=== PATIENT | male | born 1960 | race Caucasian/White ===

== ENCOUNTER 2016-11-30 12:19 | Emergency (ER) | payer BC ==
[2016-11-30 12:43] VITALS: BP 172/80; PULSE 74; RESP 20; TEMP 98.3
[2016-11-30] MEDS ORDERED: DIPH,PERTUS(ACELL)TETVAC-LF 0.5 ML VIAL IM ONE (13:02)
[2016-11-30] MEDS ORDERED: AMOXIC-POT CLAV 875-125MG 1 EACH TAB PO STA (13:03)
--- NOTE | 2016-11-30 13:10 | ED ---
Animal Bite HPI - General Chief Complaint: Animal Bite Stated Complaint: Dog Bite Time Seen by Provider: 11/30/16 12:48 Source: patient, RN notes reviewed Mode of arrival: ambulatory Limitations: no limitations - History of Present Illness Initial Comments: Patient is a 56-year-old male presents to the emergency room for evaluation of dog bite. Patient states about an hour and a half ago, he was bit by a [place]. Patient states he got bit over his right forearm. Patient states he is not up-to-date in his tetanus vaccine. Patient denies any blood thinners. Patient's exam and mild pain at the puncture sites. Patient denies any other injuries during incident. Patient denies tingling in his fingers. Patient states this dog is up-to-date in his immunizations. - Related Data Home Medications Medication Instructions Recorded Confirmed ALPRAZolam [Xanax] 1 mg PO HS 08/03/14 11/30/16 Oxymorphone HCl [Opana ER] 30 mg PO Q12HR 08/03/14 11/30/16 oxyCODONE-APAP 10-325MG [Percocet 1 each PO Q6HR PRN 08/03/14 11/30/16 10-325] Previous Rx's Medication Instructions Recorded Amoxicillin/Potassium Clav 1 each PO Q12HR #20 tab 11/30/16 [Augmentin 875-125 Tablet] Allergies Allergy/AdvReac Type Severity Reaction Status Date / Time No Known Allergies Allergy Verified 11/30/16 12:43 Review of Systems ROS Statement: Those systems with pertinent positive or pertinent negative responses have been documented in the HPI. ROS Other: All systems not noted in ROS Statement are negative. Past Medical History Additional Past Medical History / Comment(s): back pain, arthritis in back, Degenerative disc disease History of Any Multi-Drug Resistant Organisms: None Reported Past Surgical History: No Surgical Hx Reported Additional Past Surgical History / Comment(s): pelvis kidney, brain surgery Past Anesthesia/Blood Transfusion Reactions: No Reported Reaction Past Psychological History: Depression Smoking Status: Current every day smoker Past Alcohol Use History: None Reported Past Drug Use History: None Reported - Past Family History Father Additional Family Medical History / Comment(s): heart attack, triple bypass, lung cancer General Exam - General Exam Comments Initial Comments: Sitting in exam room, no acute distress. Limitations: no limitations General appearance: alert, in no apparent distress Head exam: Present: atraumatic, normocephalic, normal inspection Eye exam: Present: normal appearance ENT exam: Present: normal exam Neck exam: Present: normal inspection Respiratory exam: Absent: respiratory distress Right Forearm Wrist exam: Present: full ROM. Absent: normal inspection (two puncture wounds with mild surrounding swelling noted on the mid forearm) Hand Wrist exam: Present: normal inspection Neuro motor exam: Present: wrist extension intact, thumb opposition intact, thumb IP flexion intact, thumb adduction intact, fingers 2-5 abduction intact Vascular: Present: normal capillary refill (Capillary refill less than 2 seconds ), radial pulse (2+), ulnar pulse (2+) Back exam: Present: normal inspection Neurological exam: Present: alert, oriented X3, CN II-XII intact, normal gait Psychiatric exam: Present: normal affect, normal mood Skin exam: Present: warm, dry. Absent: rash Course Vital Signs 11/30/16 12:40 Temperature 98.3 F Pulse Rate 74 Respiratory 20 Rate Blood Pressure 172/80 O2 Sat by Pulse 97 Oximetry Medical Decision Making - Medical Decision Making Patient is a 56-year-old male presents to emergency room for evaluation of dog bite over her right forearm. X-ray shows no foreign bodies. Area was irrigated. Patient was placed on Augmentin. Patient update on his tetanus shot. Advised patient to return for signs of increasing swelling and drainage from the area. Patient states he understands everything that was discussed with him. Case discussed with Dr. West. - Radiology Data Radiology results: report reviewed, image reviewed Disposition Clinical Impression: Dog bite Disposition: HOME SELF-CARE Condition: Good Instructions: Animal Bite (ED) Additional Instructions: Clean area with antibacterial soap and water daily. Take antibiotics as directed. Please follow up with primary care provider for reevaluation in 24- 48 hours. If any new symptom arises or symptoms worsen, return to ER as soon as possible. Prescriptions: Amoxicillin/Potassium Clav [Augmentin 875-125 Tablet] 1 each PO Q12HR #20 tab Referrals: Luis Enrique Leija MD [Primary Care Provider] - 1-2 days Time of Disposition: 13:29
--- NOTE | 2016-11-30 13:28 | XR ---
EXAMINATION TYPE: XR forearm RT DATE OF EXAM: 11/30/2016 1:13 PM COMPARISON: NONE HISTORY: Pain Two views of the forearm demonstrate that the osseous structures appear to be intact and the joint sp aces appear to be preserved. There is no acute fracture or dislocation. IMPRESSION: 1. No acute fracture or dislocation
== END 2016-11-30 13:52 | disposition home or self-care (01) ==
LOC: EC 12:19
DX: S51.831A Puncture wound without foreign body of right forearm, initial encounter (principal); F32.9 Major depressive disorder, single episode, unspecified; M19.90 Unspecified osteoarthritis, unspecified site; F17.200 Nicotine dependence, unspecified, uncomplicated; Z23 Encounter for immunization; Z79.891 Long term (current) use of opiate analgesic; Z79.899 Other long term (current) drug therapy; W54.0XXA Bitten by dog, initial encounter
CPT/HCPCS: 90471; 90715; 99283

== ENCOUNTER → 2019-08-23 | Outpatient (CLI) | payer MEDICARE ==
--- NOTE | 2019-08-23 10:19 | MR ---
EXAMINATION TYPE: MR shoulder RT wo con DATE OF EXAM: 08/23/2019 COMPARISON: Outside x-ray 08/13/2019 HISTORY: Rt shoulder pain TECHNIQUE: Multiplanar, multisequence imaging of the right shoulder is performed without contrast. FINDINGS: Exam is limited due to severe artifact and motion. This results in significantly retained Limited exa m. There is arthropathy of the AC joint with edema involving the distal margin of the acromion. Edema wi thin the AC joint also noted. Impingement is noted secondary to the AC joint arthropathy. There is diffuse thickening and abnormal signal involving the distal 2.1 cm of the infraspinatus tend on compatible severe tendinopathy and partial intrasubstance tear. Undersurface tear at the insertion measuring 4 mm. No evidence of through thickness tear. Abnormal signal involving the critical zone of the supraspinatus tendon extending to the insertion. T here is a partial through thickness tear at the insertion measuring approximately 4 x 8 mm. No retrac tion. Subscapularis tendon is grossly intact. Glenohumeral joint space preserved with no sizable joint effusion. Glenohumeral ligaments intact. Assessment of bony labrum limited due to severe motion. Grossly no evidence of tear. Suprascapular Notch has a normal appearance. Bicipital tendon is well situated within the bicipital g roove with increased fluid surrounding the tendon compatible with mild tendinosis. IMPRESSION: 1. Markedly Limited exam due to extreme motion artifact. Diffuse tendinopathy of the distal 2.1 cm of the infraspinatus tendon with diffuse intrasubstance tear and degeneration extending to the insertio n but no through thickness tear or retraction. 2. Abnormal signal involving the critical zone and insertion of the supraspinatus tendon with partial through thickness tear at the insertion measuring 4 x 8 mm anterior fibers. No retraction. 3. Mild bicipital tendinosis. 4. AC joint arthropathy with edema involving the distal acromion which is nonspecific. There also is fluid signal within the AC joint correlate for strain. Mild impingement noted secondary to arthropath y of the AC joint.
== END | disposition home or self-care (01) ==
LOC: RADMRIMAIN 08:46
PROVIDERS: ATTEND Orthopaedic Surgery
DX: M75.111 Incomplete rotator cuff tear or rupture of right shoulder, not specified as traumatic (principal); M12.811 Other specific arthropathies, not elsewhere classified, right shoulder; M77.9 Enthesopathy, unspecified

== ENCOUNTER 2020-03-02 19:44 | Emergency (ER) | payer MEDICARE ==
[2020-03-02 19:57] VITALS: BP 108/68; PULSE 68; RESP 20; TEMP 98
[2020-03-02] MEDS ORDERED: FAMOTIDINE 20 MG/2 ML VIAL IV STA (20:05)
[2020-03-02] MEDS ORDERED: methylPREDNISolone SOD SUCCI 125 MG/2 ML VIAL IV STA (20:05)
--- NOTE | 2020-03-02 20:19 | ED ---
Skin/Abscess/FB HPI - General Chief complaint: Skin/Abscess/Foreign Body Stated complaint: Bee Sting on L Eye- Allergic Rxn Time Seen by Provider: 03/02/20 20:00 Source: patient Mode of arrival: ambulatory Limitations: no limitations - History of Present Illness Initial comments: 59-year-old male presenting for bee sting to left eyelid. Patient states he saw a bug flying towards him and his tongue his left eyelid. Patient states he has had swelling since. Doesn't look or tongue swelling feeling that his throat is scratchy or closing denies any hives or wheezing. Patient is about abdominal pain nausea vomiting. Patient no additional complaints. He appears well nontoxic, with obvious soft tissue swelling of the left eye surrounding tissues. This happened just prior to arrival and patient took benadryl. - Related Data Home Medications Medication Instructions Recorded Confirmed ALPRAZolam [Xanax] 1 mg PO HS 08/03/14 11/30/16 Oxymorphone HCl [Opana ER] 30 mg PO Q12HR 08/03/14 11/30/16 oxyCODONE-APAP 10-325MG [Percocet 1 each PO Q6HR PRN 08/03/14 11/30/16 10-325] Previous Rx's Medication Instructions Recorded Amoxicillin/Potassium Clav 1 each PO Q12HR #20 tab 11/30/16 [Augmentin 875-125 Tablet] predniSONE 50 mg PO DAILY 3 Days #3 tab 03/02/20 Allergies Allergy/AdvReac Type Severity Reaction Status Date / Time No Known Allergies Allergy Verified 03/02/20 19:56 Review of Systems ROS Statement: Those systems with pertinent positive or pertinent negative responses have been documented in the HPI. ROS Other: All systems not noted in ROS Statement are negative. Past Medical History Additional Past Medical History / Comment(s): back pain, arthritis in back, Degenerative disc disease History of Any Multi-Drug Resistant Organisms: None Reported Past Surgical History: No Surgical Hx Reported Additional Past Surgical History / Comment(s): pelvis kidney, brain surgery Past Anesthesia/Blood Transfusion Reactions: No Reported Reaction Past Psychological History: Depression Smoking Status: Current every day smoker Past Alcohol Use History: None Reported Past Drug Use History: None Reported - Past Family History Father Additional Family Medical History / Comment(s): heart attack, triple bypass, lung cancer General Exam - General Exam Comments Initial Comments: General: The patient is awake and alert, in no distress Eye: +3 mm pupils are equal, round and reactive to light, extra-ocular movements are intact. No nystagmus. There is normal conjunctiva bilaterally. No signs of icterus. Ears, nose, mouth and throat: There are moist mucous membranes and no oral lesions. Soft tissue swelling of the periorbital tissues this is not erythematous, vision intact when lids retracted. No conjunctival injection. Neck: The neck is supple, there is no tenderness or JVD. Cardiovascular: There is a regular rate and rhythm. No murmur, rub or gallop is appreciated. Respiratory: Lungs are clear to auscultation, respirations are non-labored, breath sounds are equal. No wheezes, stridor, rales, or rhonchi. Gastrointestinal: Soft, non-distended, non-tender abdomen without masses or organomegaly noted. There is no rebound or guarding present. Musculoskeletal: Normal ROM, no tenderness. Strength 5/5. Sensation intact. Pulses equal bilaterally 2+. Neurological: A&O x 3. CN II-XII intact grossly, There are no obvious motor or sensory deficits. Coordination appears grossly intact. Speech is normal. Skin: Skin is warm and dry and no rashes or lesions are noted. Psychiatric: Cooperative, appropriate mood & affect, normal judgment. Limitations: no limitations Course Vital Signs 03/02/20 19:54 Temperature 98.0 F Pulse Rate 68 Respiratory 20 Rate Blood Pressure 108/68 O2 Sat by Pulse 99 Oximetry Medical Decision Making - Medical Decision Making Nontoxic 59-year-old male presenting for bee sting left eyelid there is obvious local reaction. Patient has no symptoms concerning for systemic reaction. Patient took Benadryl prior to arrival he was given Solumedrol and Pepcid. Patient be discharged with a steroid. Discussed symptomatic treatment and patient was discharged appearing well. Return parameters also discussed and case was discussed with attending Dr. West who is agreeable to care plan and discharge. Disposition Clinical Impression: Bee sting reaction, Eye swelling, left Disposition: HOME SELF-CARE Condition: Good Instructions (If sedation given, give patient instructions): Insect Bite or Sting (ED) Additional Instructions: Please use medication as discussed. Please follow-up with family doctor in the next 2 days. Please return to emergency room if the symptoms increase or worsen or for any other concerns. Prescriptions: predniSONE 50 mg PO DAILY 3 Days #3 tab Is patient prescribed a controlled substance at d/c from ED?: No Referrals: Luis Enrique Leija MD [Primary Care Provider] - 1-2 days Time of Disposition: 20:19
[2020-03-02] MEDS ORDERED: methylPREDNISolone SOD SUCCI 125 MG/2 ML VIAL IM ONE (20:21)
[2020-03-02] MEDS ORDERED: FAMOTIDINE 20 MG TAB PO STA (20:21)
== END 2020-03-02 21:01 | disposition home or self-care (01) ==
LOC: EC 19:44
DX: T63.441A Toxic effect of venom of bees, accidental (unintentional), initial encounter (principal); F32.9 Major depressive disorder, single episode, unspecified; M54.9 Dorsalgia, unspecified; F17.200 Nicotine dependence, unspecified, uncomplicated; Z79.891 Long term (current) use of opiate analgesic; Z79.899 Other long term (current) drug therapy
CPT/HCPCS: 99283; 96372; J2930

== ENCOUNTER → 2020-04-01 | Outpatient (CLI) | payer MEDICARE ==
--- NOTE | 2020-04-01 15:34 | XR ---
EXAMINATION TYPE: XR skull limited DATE OF EXAM: 04/01/2020 COMPARISON: NONE HISTORY: Pre-MRI TECHNIQUE: 3 views submitted FINDINGS: Lucency along the left parietal bone is nonspecific. Chronic be correlated with head CT. Pi veronica gland calcification noted. No suspicious metallic densities overlying the orbits. IMPRESSION: No evidence of metallic foreign body overlying the orbits.
== END | disposition home or self-care (01) ==
LOC: RADXRMAIN 15:05
PROVIDERS: ATTEND Anesthesiology
DX: Z09 Encounter for follow-up examination after completed treatment for conditions other than malignant neoplasm (principal); Z18.10 Retained metal fragments, unspecified
CPT/HCPCS: 70250

== ENCOUNTER 2021-06-08 15:03 | Emergency (ER) | payer MEDICARE ==
[2021-06-08 15:11] VITALS: BP 172/96; PULSE 92; RESP 18; TEMP 98.8
[2021-06-08 15:11] LABS: Glucose,Whole Blood 187 mg/dL (75-99)
[2021-06-08] MEDS ORDERED: MORPHINE SULFATE 4 MG/ML SYRINGE IVP STA ×2 (15:15→16:31)
[2021-06-08] MEDS ORDERED: DIPH,PERTUS(ACELL)TETVAC-LF 0.5 ML VIAL IM ONE (15:17)
[2021-06-08] MEDS ORDERED: SODIUM CHLORIDE 0.9% 1,000 ML IV STA (15:17)
[2021-06-08] MEDS ORDERED: diphenhydrAMINE 50 MG/ML 1 ML VIAL IVP STA (15:22)
[2021-06-08] MEDS ORDERED: FAMOTIDINE 20 MG/2 ML VIAL IV STA (15:22)
[2021-06-08] MEDS ORDERED: ONDANSETRON 4 MG/2 ML VIAL IVP STA (15:22)
[2021-06-08] MEDS ORDERED: methylPREDNISolone SOD SUCCI 125 MG/2 ML VIAL IV STA (15:22)
[2021-06-08 15:27] LABS: Basophils # (A) 0.1 k/uL (0-0.2); Basophils % (A) 0 %; Eosinophils # (A) 0.2 k/uL (0-0.7); Eosinophils % (A) 1 %; HCT 44.4 % (39.0-53.0); HGB 15.6 gm/dL (13.0-17.5); Lymphocytes # (A) 5.1 k/uL (1.0-4.8); Lymphocytes % (A) 29 %; MCH 31.6 pg (25.0-35.0); MCHC 35.2 g/dL (31.0-37.0); MCV 89.6 fL (80.0-100.0); Mean Platelet Volume 8.2; Monocytes # (A) 0.9 k/uL (0-1.0); Monocytes % (A) 5 %; Neutrophils # (A) 10.8 k/uL (1.3-7.7); Neutrophils % (A) 63 %; Platelet Count 256 k/uL (150-450); RBC 4.95 m/uL (4.30-5.90); RDW 12.5 % (11.5-15.5); WBC 17.3 k/uL (3.8-10.6)
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
[2021-06-08 15:56] LABS: INR 0.9 (<1.2); Partial Thromboplastin Time 21.9 sec (22.0-30.0)
[2021-06-08 16:05] LABS: Appearance,Urine Clear (Clear); Bacteria,Urine Rare /hpf; Bilirubin,Urine Negative (Negative); Blood,Urine Moderate (Negative); Color,Urine Yellow; Glucose,Urine (UA) 3+ (Negative); Hyaline Casts,Urine 1 /lpf (0-2); Ketones,Urine Negative (Negative); Leukocyte Esterase,Urine Negative (Negative); Mucus,Urine Rare /hpf; Nitrite,Urine Negative (Negative); PH, Urine 5.5 (5.0-8.0); Protein,Urine 1+ (Negative); RBC,Urine 69 /hpf (0-5); Specific Gravity,Urine 1.021 (1.001-1.035); Urobilinogen,Urine <2.0 mg/dL (<2.0); WBC,Urine 1 /hpf (0-5)
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
[2021-06-08 16:07] LABS: ALT 53 U/L (4-49); AST 74 U/L (17-59); African American GFR (CKD) >90 (>60 ml/min/1.73 sqM); Alcohol <10 mg/dL; Alkaline Phosphatase 161 U/L (38-126); Anion Gap 7 mmol/L; Blood Urea Nitrogen 20 mg/dL (9-20); Calcium 8.9 mg/dL (8.4-10.2); Carbon Dioxide 23 mmol/L (22-30); Chloride 103 mmol/L (98-107); Glucose 184 mg/dL (74-99); Non-African American GFR(CKD) >90 (>60 ml/min/1.73 sqM); Sodium 133 mmol/L (137-145); Total Bilirubin 0.9 mg/dL (0.2-1.3); Total Protein 7.6 g/dL (6.3-8.2)
[2021-06-08 16:09] LABS: Potassium 4.8 mmol/L (3.5-5.1)
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
[2021-06-08 16:13] LABS: Amphetamine Screen,Urine Not Detected (NotDetected); Barbiturate Screen,Urine Not Detected (NotDetected); Benzodiazepines Screen,Urine Not Detected (NotDetected); Cocaine Screen,Urine Not Detected (NotDetected); Methadone Screen, Urine Not Detected (NotDetected); Opiate Screen,Urine Detected (NotDetected); Oxycodone Screen, Urine Detected (NotDetected); Phencyclidine Screen,Urine Not Detected (NotDetected); Tricyclic Antidepressant,Urine Not Detected (NotDetected); Urn Cannabinoid Scrn Not Detected (NotDetected)
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
[2021-06-08] MEDS ORDERED: LIDOCAINE 1% INJ 10MG/ML (20 ML MDV) SQ ONE (16:21)
[2021-06-08] MEDS ORDERED: LIDOCAINE 5% PATCH TOPICAL STA (16:31)
[2021-06-08] MEDS ORDERED: KETOROLAC 30 MG/ML 1 ML VIAL IVP STA (16:42)
[2021-06-08] MEDS ORDERED: methocarbamoL 750 MG TAB PO STA (16:43)
[2021-06-08] MEDS ORDERED: PROCHLORPERAZINE INJ 10 MG/2 ML VIAL IVP STA (16:43)
[2021-06-08] MEDS ORDERED: MORPHINE SULFATE 2 MG/ML SYRINGE IVP STA (17:48)
== END 2021-06-08 18:43 | disposition home or self-care (01) ==
LOC: EC 15:03
DX: S01.81XA Laceration without foreign body of other part of head, initial encounter (principal); G89.29 Other chronic pain; M54.50 Low back pain, unspecified; R07.81 Pleurodynia; U07.1 COVID-19; D72.829 Elevated white blood cell count, unspecified; R31.9 Hematuria, unspecified; F17.200 Nicotine dependence, unspecified, uncomplicated; F32.9 Major depressive disorder, single episode, unspecified; Z79.52 Long term (current) use of systemic steroids; Z79.899 Other long term (current) drug therapy; Z23 Encounter for immunization; V49.50XA Passenger injured in collision with unspecified motor vehicles in traffic accident, initial encounter; Y92.410 Unspecified street and highway as the place of occurrence of the external cause
CPT/HCPCS: 12014; 99285; 96374; 96375 ×6; 96376 ×2; 96361; 90471; 36415; 93005; 86900; 86901; 80053; 84484; 85025; 85610; 85730; 86850; 81001; 80306; 72170; 71045; 72129; 72125; 72132; 70486; 70450; 71260; 74177; 90715; G0480; J2270 ×2; J1200; J0780; J2930; J2405; J2001; J1885; Q9967; 80320

== ENCOUNTER 2023-01-10 23:17 | Inpatient (IN) | payer BC, MEDICARE, OTHER ==
[2023-01-10 23:56] LABS: ALT 27 U/L (4-49); AST 24 U/L (17-59); African American GFR (CKD) >90 (>60 ml/min/1.73 sqM); Albumin 4.1 g/dL (3.5-5.0); Alkaline Phosphatase 105 U/L (38-126); Anion Gap 11 mmol/L; Blood Urea Nitrogen 15 mg/dL (9-20); Carbon Dioxide 19 mmol/L (22-30); Chloride 106 mmol/L (98-107); Glucose 296 mg/dL (74-99); Non-African American GFR(CKD) >90 (>60 ml/min/1.73 sqM); Sodium 136 mmol/L (137-145); Total Bilirubin 0.3 mg/dL (0.2-1.3); Total Protein 7.1 g/dL (6.3-8.2)
[2023-01-10 23:59] LABS: Basophils # (A) 0.1 k/uL (0-0.2); Basophils % (A) 1 %; Eosinophils # (A) 0.3 k/uL (0-0.7); Eosinophils % (A) 3 %; HGB 15.7 gm/dL (13.0-17.5); Lymphocytes # (A) 3.4 k/uL (1.0-4.8); Lymphocytes % (A) 33 %; MCH 30.4 pg (25.0-35.0); MCHC 33.4 g/dL (31.0-37.0); MCV 91.2 fL (80.0-100.0); Mean Platelet Volume 8.2; Monocytes # (A) 0.5 k/uL (0-1.0); Monocytes % (A) 5 %; Neutrophils # (A) 5.8 k/uL (1.3-7.7); Neutrophils % (A) 57 %; Platelet Count 228 k/uL (150-450); RBC 5.16 m/uL (4.30-5.90); RDW 12.6 % (11.5-15.5); WBC 10.2 k/uL (3.8-10.6)
[2023-01-11 00:04] LABS: Prothrombin Time 10.5 sec (9.0-12.0)
--- NOTE | 2023-01-11 00:12 | XR ---
EXAM: XR Chest, 2 Views CLINICAL HISTORY: chest pain TECHNIQUE: Frontal and lateral views of the chest. COMPARISON: 06/08/21 FINDINGS: Lungs: No significant abnormality. No consolidation. Pleural space: No significant abnormality. No pneumothorax. Heart: No significant abnormality. No cardiomegaly. Mediastinum: No significant abnormality. Bones/joints: No acute abnormality. IMPRESSION: No acute cardiopulmonary process.
[2023-01-11] MEDS ORDERED: ASPIRIN 81 MG PO STA (01:00)
[2023-01-11] MEDS ORDERED: NITROGLYCERIN SL TABS 0.4 MG TAB SUBLINGUAL STA (01:03)
[2023-01-11] MEDS ORDERED: HEPARIN SODIUM 1,000 UN/ML (10ML VL) IV PRN (01:04)
[2023-01-11] MEDS ORDERED: HEPARIN SODIUM 1,000 UN/ML (10ML VL) IV ONE (01:04)
[2023-01-11] MEDS ORDERED: NITROGLYCERIN SL TABS 0.4 MG TAB SUBLINGUAL PRN ×3 (01:17→12:39)
[2023-01-11] MEDS ORDERED: NICOTINE 21MG/24HR PATCH TRANSDERM STA (01:20)
--- NOTE | 2023-01-11 01:24 | ED ---
Chest Pain HPI - General Chief Complaint: Chest Pain Stated Complaint: Chest Pain Time Seen by Provider: 01/11/23 00:59 Source: patient Mode of arrival: ambulatory Limitations: no limitations - History of Present Illness Initial Comments: This patient is a 62-year-old man who presents to have evaluation of pain in the left upper chest that had come on tonight about 11:30 while he was using computer. Patient states she has had about 45 episodes of this going back a number of weeks maybe a month. He states that they usually last about an hour, much like tonight. The pain has resolved now. He states that there is some accompanying diaphoresis and a little bit of dyspnea. Tonight there was nausea and dry heaves. The patient states that he does smoke maybe around 2 packs of cigarettes per day. He has not had a heart cath he did have a stress test but that was a long time ago. MD Complaint: chest pain Onset/Timin -: hour(s) Onset: during rest Pain Location: left chest Pain Radiation: LUE Severity: severe Quality: aching Consistency: now resolved Improves With: nothing Worsens With: nothing Anginal Symptoms: nausea, vomiting, diaphoresis, dyspnea Treatments Prior to Arrival: none - Related Data Home Medications Medication Instructions Recorded Confirmed oxyCODONE-APAP 10-325MG [Percocet 1 tab PO BID PRN 08/03/14 01/11/23 10-325 mg] Oxymorphone HCl [Oxymorphone HCl 10 mg PO Q12H 01/11/23 01/11/23 ER] Zolpidem [Ambien] 10 mg PO HS 01/11/23 01/11/23 Previous Rx's Medication Instructions Recorded Aspirin EC [Ecotrin Low Dose] 81 mg PO DAILY #90 tab 01/12/23 Atorvastatin [Lipitor] 80 mg PO DAILY #90 tab 01/12/23 Metoprolol Tartrate [Lopressor] 25 mg PO BID #180 tab 01/12/23 Nicotine 21Mg/24Hr Patch [Habitrol] 1 patch TRANSDERM DAILY #30 patch 01/12/23 Prasugrel [Effient] 10 mg PO DAILY #90 tab 01/12/23 Allergies Allergy/AdvReac Type Severity Reaction Status Date / Time Iodinated Contrast Media Allergy Unknown Verified 01/11/23 11:22 Review of Systems ROS Statement: Those systems with pertinent positive or pertinent negative responses have been documented in the HPI. ROS Other: All systems not noted in ROS Statement are negative. Constitutional: Denies: fever, chills Respiratory: Reports: as per HPI, dyspnea. Denies: cough Cardiovascular: Reports: chest pain. Denies: palpitations, edema, syncope Gastrointestinal: Reports: nausea, vomiting. Denies: abdominal pain, constipation, hematemesis Genitourinary: Denies: dysuria, hematuria Musculoskeletal: Denies: back pain Skin: Denies: rash Neurological: Denies: headache, weakness, numbness EKG Findings - EKG Results: EKG: interpreted by SHAHBAZD, sinus rhythm (Rate 75 bpm), normal QRS (There is left anterior fascicular block.) - Blocks, Ava, Hypertrophy, ST Abn: Repolarization changes or abnormalities: ST or T wave suggestive of ischemia (Inferior) Past Medical History Additional Past Medical History / Comment(s): back pain, arthritis in back, Degenerative disc disease History of Any Multi-Drug Resistant Organisms: None Reported Past Surgical History: No Surgical Hx Reported Additional Past Surgical History / Comment(s): pelvis kidney, brain surgery Past Anesthesia/Blood Transfusion Reactions: No Reported Reaction Past Psychological History: Depression Smoking Status: Current every day smoker Past Alcohol Use History: None Reported Past Drug Use History: None Reported - Past Family History Father Additional Family Medical History / Comment(s): heart attack, triple bypass, lung cancer General Exam Limitations: no limitations General appearance: alert, in no apparent distress Head exam: Present: atraumatic, normocephalic Eye exam: Present: normal appearance. Absent: scleral icterus, conjunctival injection Neck exam: Present: normal inspection Respiratory exam: Present: normal lung sounds bilaterally. Absent: respiratory distress, wheezes, rales, rhonchi, stridor Cardiovascular Exam: Present: regular rate, normal rhythm, normal heart sounds. Absent: systolic murmur, diastolic murmur, rubs, gallop GI/Abdominal exam: Present: soft. Absent: distended, tenderness, guarding, rebound, rigid, mass Extremities exam: Present: normal inspection, normal capillary refill. Absent: pedal edema, calf tenderness Back exam: Present: normal inspection. Absent: CVA tenderness (R), CVA tenderness (L) Neurological exam: Present: alert Skin exam: Present: warm, dry, intact, normal color. Absent: rash Course Vital Signs 01/10/23 01/11/23 01/11/23 23:33 01:42 02:00 Temperature 98 F Pulse Rate 74 68 64 Pulse Rate [ Right] Respiratory 18 18 16 Rate Blood Pressure 196/99 160/88 165/105 Blood Pressure [Left Arm] O2 Sat by Pulse 98 98 Oximetry 01/11/23 01/11/23 01/11/23 03:00 03:35 04:00 Temperature Pulse Rate 60 58 L 59 L Pulse Rate [ Right] Respiratory 17 18 17 Rate Blood Pressure 166/107 148/78 143/80 Blood Pressure [Left Arm] O2 Sat by Pulse Oximetry 01/11/23 01/11/23 01/11/23 05:00 06:00 07:00 Temperature Pulse Rate 59 L 54 L 55 L Pulse Rate [ Right] Respiratory 18 17 14 Rate Blood Pressure 127/98 141/83 136/89 Blood Pressure [Left Arm] O2 Sat by Pulse 95 Oximetry 01/11/23 01/11/23 01/11/23 07:46 08:00 09:00 Temperature Pulse Rate 57 L 60 Pulse Rate [ 66 Right] Respiratory 15 15 12 Rate Blood Pressure 137/76 154/77 Blood Pressure 130/83 [Left Arm] O2 Sat by Pulse 95 95 98 Oximetry 01/11/23 10:00 Temperature Pulse Rate 56 L Pulse Rate [ Right] Respiratory 12 Rate Blood Pressure 150/87 Blood Pressure [Left Arm] O2 Sat by Pulse 95 Oximetry Chest Pain MDM - MDM The patient had chest x-ray which I interpreted as being negative for acute infiltrate, pneumothorax, congestive heart failure Was pt. sent in by a medical professional or institution (, PA, CENTER MEDICAL AND [facility] DIRECTOR, urgent care, hospital, or halfway...) When possible be specific @ -[No] Did you speak to anyone other than the patient for history (EMS, parent, family, police, friend...)? What history was obtained from this source @ -[No] Did you review nursing and triage notes (agree or disagree)? Why? @ -[I reviewed and agree with nursing and triage notes] Were old charts reviewed (outside hosp., previous admission, EMS record, old EKG, old radiological studies, urgent care reports/EKG's, halfway records)? Report findings @ -[No old charts were reviewed] Differential Diagnosis (chest pain, altered mental status, abdominal pain women, abdominal pain men, vaginal bleeding, weakness, fever, dyspnea, syncope, headache, dizziness, GI bleed, back pain, seizure, CVA, palpatations, mental health, musculoskeletal)? @ -[Differential Chest Pain: Stable Angina, Unstable Angina, STEMI, NSTEMI Aortic Dissection, Pneumothorax, Musculoskeletal, Esophageal Spasm GERD, Cholecystitis, Pancreatitis, Zoster, this is not meant to be an all-inclusive list. EKG interpreted by me (3pts min.). @ -[As above] X-rays interpreted by me (1pt min.). @ -[As above CT interpreted by me (1pt min.). @ -[None done] U/S interpreted by me (1pt. min.). @ -[None done] What testing was considered but not performed or refused? (CT, X-rays, U/S, lab s)? Why? @ -[None] What meds were considered but not given or refused? Why? @ -[None] Did you discuss the management of the patient with other professionals (professionals i.e. , PA, CENTER MEDICAL AND [facility] DIRECTOR, lab, RT, psych nurse, neonatal social worker, fancy packer, teacher, agricultural technical officer, correctional counselor/case manager)? Give summary @ -[I discussed the case with the digital cartographer and with the admitting physician Was smoking cessation discussed for >3mins.? @ -[No] Was critical care preformed (if so, how long)? @ -[Yes, 30 minutes Were there social determinants of health that impacted care today? How? (Homelessness, low income, unemployed, alcoholism, drug addiction, transportation, low edu. Level, literacy, decrease access to med. care, intermediate, rehab)? @ -[No] Was there de-escalation of care discussed even if they declined (Discuss DNR or withdrawal of care, Hospice)? DNR status @ -[No] What co-morbidities impacted this encounter? (DM, HTN, Smoking, COPD, CAD, Cancer, CVA, ARF, Chemo, Hep., AIDS, mental health diagnosis, sleep apnea, morbid obesity)? @ -[None] Was patient admitted / discharged? Hospital course, mention meds given and route, prescriptions, significant lab abnormalities, going to OR and other pertinent info. @ -[I patient be admitted to have further treatment as well as cardiology consultation Undiagnosed new problem with uncertain prognosis? @ -[No] Drug Therapy requiring intensive monitoring for toxicity (Heparin, Nitro, Insulin, Cardizem)? @ -IV heparin started Were any procedures done? @ -[No] Diagnosis/symptom? @ -[Acute coronary syndrome Acute, or Chronic, or Acute on Chronic? @ -[default] Uncomplicated (without systemic symptoms) or Complicated (systemic symptoms)? @ -[Uncomplicated Side effects of treatment? @ -[No] Exacerbation, Progression, or Severe Exacerbation? @ -[No] Poses a threat to life or bodily function? How? (Chest pain, [place], [place], pneumonia, PE, COPD, DKA, ARF, appy, cholecystitis, CVA, Diverticulitis, Homicidal, Suicidal, threat to staff... and all critical care pts) @ -[Yes, untreated cardiac chest pain may result in [place]/ Critical Care Time Critical Care Time: Yes (30 minutes) Disposition Clinical Impression: Acute coronary syndrome Disposition: ADMITTED IP TO THIS HOSP Condition: Fair Is patient prescribed a controlled substance at d/c from ED?: No
[2023-01-11] MEDS ORDERED: MORPHINE SULFATE 4 MG/ML SYRINGE IV STA (01:25)
[2023-01-11] MEDS: HEPARIN SOD,PORK IN 0.45% NACL 25,000 UNIT in 0.45% NACL 1 250ML.BAG IV SCH (01:35)
[2023-01-11] MEDS: METOPROLOL TARTRATE 25 MG TAB PO SCH ×3 (01:42→20:50)
[2023-01-11] MEDS: SODIUM CHLORIDE 0.9% 1,000 ML IV SCH ×3 (01:46→23:39)
[2023-01-11] MEDS ORDERED: ALPRAZolam 1 MG TAB PO STA (02:17)
[2023-01-11] MEDS ORDERED: ATORVASTATIN 80 MG TAB PO STA ×2 (03:15→09:35)
[2023-01-11] MEDS: ATORVASTATIN 80 MG TAB PO SCH (08:42)
[2023-01-11] MEDS: oxyCODONE-APAP 10-325MG 1 EACH TAB PO PRN ×3 (08:43→23:30)
[2023-01-11] MEDS: predniSONE 50 MG TAB PO SCH (08:43)
[2023-01-11] MEDS: OXYMORPHONE HCL 30 MG PO SCH ×2 (08:43→20:55)
[2023-01-11] MEDS ORDERED: ALPRAZolam 0.5 MG TAB PO PRN (09:35)
[2023-01-11] MEDS ORDERED: ALPRAZolam 0.25 MG TAB PO PRN (09:35)
[2023-01-11] MEDS ORDERED: ASPIRIN 325 MG TAB PO STA (09:35)
[2023-01-11] MEDS ORDERED: ONDANSETRON 4 MG/2 ML VIAL IVP PRN (09:39)
[2023-01-11] MEDS ORDERED: ONDANSETRON 4 MG/2 ML VIAL IVP STA (09:39)
--- NOTE | 2023-01-11 09:40 | P.HPIM ---
History of Present Illness This is a pleasant 62 years old male with past medical history of back pain, arthritis in back, Degenerative disc disease, Depression, nicotine dependence Presents because of chest pain on and off for the last 2-3 weeks, central, n onradiating, nonspecific. With no associated dyspnea or coughing. This is associated with some nausea and vomiting Patient denies abdominal pain or urinary complaints. He had some headaches but no dizziness weakness or numbness. Patient says he smokes a lot, 2.5-to 3 packs per day, no alcohol or illicit drugs. Patient was consulted with and he said he will try rigid a fistula nicotine patch Patient is bradycardic around 50s, still vitals are stable. Patient has unremarkable CBC, INR, BMP, liver enzymes. Was elevated to 96. Troponin elevated at 0.09 0.14 and 0.44. EKG showing normal sinus rhythm with no significant ST-T changes. Chest x-ray: no Acute process. Patient currently on heparin drip and chest pain improved Review of Systems Review of systems CONSTITUTIONAL: No fever, no malaise, no fatigue. HEENT: No recent visual problems or hearing problems. Denied any sore throat. CARDIOVASCULAR: No orthopnea, PND, no palpitations, no syncope. PULMONARY: No shortness of breath, no cough, no hemoptysis. GASTROINTESTINAL: No diarrhea, no nausea, no vomiting, no abdominal pain. Normoactive bowel sounds. NEUROLOGICAL: No headaches, no weakness, no numbness. HEMATOLOGICAL: Denies any bleeding or petechiae. GENITOURINARY: Denies any burning micturition, frequency, or urgency. MUSCULOSKELETAL/RHEUMATOLOGICAL: Denies any joint pain, swelling, or any muscle pain. ENDOCRINE: Denies any polyuria or polydipsia. Past Medical History Additional Past Medical History / Comment(s): back pain, arthritis in back, Degenerative disc disease History of Any Multi-Drug Resistant Organisms: None Reported Past Surgical History: No Surgical Hx Reported Additional Past Surgical History / Comment(s): pelvis kidney, brain surgery Past Anesthesia/Blood Transfusion Reactions: No Reported Reaction Past Psychological History: Depression Smoking Status: Current every day smoker Past Alcohol Use History: None Reported Past Drug Use History: None Reported - Past Family History Father Additional Family Medical History / Comment(s): heart attack, triple bypass, lung cancer Medications and Allergies Home Medications Medication Instructions Recorded Confirmed Type ALPRAZolam [Xanax] 1 mg PO HS 08/03/14 11/30/16 History Oxymorphone HCl [Opana ER] 30 mg PO Q12HR 08/03/14 11/30/16 History oxyCODONE-APAP 10-325MG [Percocet 1 each PO Q6HR PRN 08/03/14 11/30/16 History 10-325] Amoxicillin/Potassium Clav 1 each PO Q12HR #20 tab 11/30/16 Rx [Augmentin 875-125 Tablet] predniSONE 50 mg PO DAILY 3 Days #3 tab 03/02/20 Rx Lidocaine 5% Patch [Lidoderm 5% 1 patch TOPICAL DAILY 7 Days #7 06/08/21 Rx Patch] patch Allergies Allergy/AdvReac Type Severity Reaction Status Date / Time Iodinated Contrast Media Allergy Unknown Unverified 01/10/23 23:33 Physical Exam Vitals: Vital Signs Temp Pulse Resp BP Pulse Ox 01/11/23 08:00 57 L 15 137/76 95 01/11/23 07:00 55 L 14 136/89 95 01/11/23 06:00 54 L 17 141/83 01/11/23 05:00 59 L 18 127/98 01/11/23 04:00 59 L 17 143/80 01/11/23 03:35 58 L 18 148/78 01/11/23 03:00 60 17 166/107 01/11/23 02:00 64 16 165/105 01/11/23 01:42 68 18 160/88 98 01/10/23 23:33 98 F 74 18 196/99 98 Intake and Output 01/10/23 01/11/23 01/11/23 22:59 06:59 14:59 Intake Total 59.757 Balance 59.757 Intake: Intake, IV Titration 59.757 Amount Heparin Sod,Pork in 0.45% 59.757 NaCl 25,000 unit In 0.45 % NaCl 1 250ml.bag @ 12 UNITS/KG/HR 10.832 mls/hr IV .Q23H5M [facility] Rx#: [id number] Other: Weight 90.265 kg GENERAL: The patient is alert and oriented x3, not in any acute distress. Well developed, well nourished. HEENT: Pupils are round and equally reacting to light. EOMI. No scleral icterus. No conjunctival pallor. Normocephalic, atraumatic. No pharyngeal erythema. No thyromegaly. CARDIOVASCULAR: S1 and S2 present. No murmurs, rubs, or gallops. PULMONARY: Chest is clear to auscultation, no wheezing , no crackles. ABDOMEN: Soft, nontender, nondistended, normoactive bowel sounds. No palpable organomegaly. MUSCULOSKELETAL: No joint swelling or deformity. EXTREMITIES: No cyanosis, clubbing, or pedal edema. NEUROLOGICAL: Gross neurological examination did not reveal any focal deficits. SKIN: No rashes. no petechiae. Results CBC & Chem 7: 01/10/23 23:38 01/10/23 23:38 Labs: Abnormal Lab Results - Last 24 Hours (Table) 01/10/23 01/10/23 01/11/23 Range/Units 23:38 23:38 01:48 APTT (22.0-30.0) sec Sodium 136 L (137-145) mmol/L Carbon Dioxide 19 L (22-30) mmol/L Glucose 296 H (74-99) mg/dL Troponin I 0.096 H* 0.143 H* (0.000-0.034) ng/mL 01/11/23 01/11/23 Range/Units 05:27 05:27 APTT 39.4 H (22.0-30.0) sec Sodium (137-145) mmol/L Carbon Dioxide (22-30) mmol/L Glucose (74-99) mg/dL Troponin I 0.446 H* (0.000-0.034) ng/mL Assessment and Plan Assessment: Chest pain, suspicious for non-STEMI Nicotine dependence History of osteoarthritis within back pain and degenerative disc disease Depression, not active issue Plan: Continue with aspirin Check echocardiogram Patient is counseled to quit smoking. Continue with nicotine patch. I discussed the case with cartilage team possible cardiac cath today Labs and medication were reviewed.. Continue same treatment. Continue with symptomatic treatment. Resume home medication. Monitor labs and vitals. DVT and GI prophylaxis. Further recommendations as per clinical course of the patient DVT prophylaxis: heparin GI Prophylaxis: Pepcid Prognosis is guarded
[2023-01-11] MEDS: FAMOTIDINE 20 MG/2 ML VIAL IV SCH ×2 (09:52→20:50)
[2023-01-11] MEDS ORDERED: HEPARIN SODIUM 1,000 UN/ML (10ML VL) ONE (10:48)
[2023-01-11] MEDS ORDERED: VERAPAMIL 2.5 MG/ML 2 ML AMP ONE (10:48)
[2023-01-11] MEDS ORDERED: fentaNYL (PF) 50 MCG/ML 2 ML AMP ONE (10:49)
[2023-01-11] MEDS ORDERED: IV FLUID CONTINUATION 1,000 ML IV ONE (10:55)
[2023-01-11] MEDS: fentaNYL (PF) 50 MCG/ML 2 ML AMP IV ONE ×2 (11:06→12:27)
[2023-01-11] MEDS ORDERED: diphenhydrAMINE 50 MG/ML 1 ML VIAL IVP ONE (11:06)
[2023-01-11] MEDS ORDERED: methylPREDNISolone SOD SUCCI 125 MG/2 ML VIAL IV ONE (11:06)
[2023-01-11] MEDS ORDERED: methylPREDNISolone SOD SUCCI 125 MG/2 ML VIAL ONE (11:06)
[2023-01-11] MEDS ORDERED: diphenhydrAMINE 50 MG/ML 1 ML VIAL ONE (11:06)
[2023-01-11] MEDS: MIDAZOLAM 2 MG/2 ML VIAL IV ONE ×2 (11:06→12:21)
[2023-01-11] MEDS ORDERED: LIDOCAINE 1% INJ 10MG/ML (5 ML VIAL-PF) SQ ONE (11:09)
[2023-01-11] MEDS ORDERED: VERAPAMIL SYRINGE (5 MG/10 ML) INTRAARTER ONE (11:11)
[2023-01-11] MEDS: HEPARIN SODIUM 1,000 UN/ML (10ML VL) IV ONE ×3 (11:13→12:41)
[2023-01-11] MEDS ORDERED: niCARdipine 25 MG/10 ML VIAL ONE (11:57)
[2023-01-11] MEDS ORDERED: CLOPIDOGREL 75 MG TAB ONE (11:58)
[2023-01-11] MEDS ORDERED: PRASUGREL 10 MG TAB ONE ×2 (12:00)
[2023-01-11] MEDS ORDERED: PRASUGREL 10 MG TAB PO ONE (12:02)
[2023-01-11] MEDS: NITROGLYCERIN 1000MCG/10ML SYRINGE INTRACORON ONE ×2 (12:05→12:21)
[2023-01-11] MEDS ORDERED: IOPAMIDOL-370 100ML BTL INJ ONE ×2 (12:16→12:41)
--- NOTE | 2023-01-11 12:21 | CC ---
CARDIAC CATHETERIZATION REPORT INDICATION: Acute [id number] elevation MO. PROCEDURE NOTE: After obtaining informed consent, left heart catheterization and coronary angiogram were performed via the right radial artery using standard Leon catheters. The patient tolerated the procedure well without any obvious immediate complications. The patient received moderate conscious sedation. Total sedation time was 20 minutes. Right radial artery access was obtained using Seldinger technique. A 6-Georgian sheath was placed. Catheters and wires were floated into the ascending aorta under fluoroscopic guidance. The patient tolerated the procedure well without any obvious immediate complications, received verapamil and heparin per protocol. The patient has history of allergy to IV dye and he received Benadryl and Solu-Medrol prior to the case. Procedure was completed uneventfully. FINDINGS: HEMODYNAMICS: 1. Left ventricular end-diastolic pressure is 20 mm. There is no significant gradient across the aortic valve. 2. Left ventriculogram: Left ventriculogram is not performed. ANGIOGRAPHIC DATA: Right coronary artery: Right coronary artery is a large dominant vessel and is free of stenosis. Left main coronary artery is a short vessel and is free of stenosis. It divides into left anterior descending coronary artery and circumflex coronary artery. LAD and its branches are free of significant disease. Circumflex coronary artery shows a long area of 90% to 95% stenosis involving a large caliber second OM branch. The [place] circ also has 60% to 70% stenosis. CONCLUSIONS: There is 90% stenosis involving the OM branch with an area of stenosis involving circ also at the bifurcation. PLAN: I am going to have Dr. Amos, the on-call aviation project manager, review the angiographic data and advise on angioplasty of the OM branch. MMJOONL / SAMIN: [id number] /
[2023-01-11] MEDS ORDERED: MAG HYDROX/AL HYDROX/SIMETH 30 ML CUP PO PRN (12:39)
[2023-01-11] MEDS ORDERED: ATROPINE SULFATE 0.1 MG/ML 10ML SYRINGE IV PRN (12:39)
[2023-01-11] MEDS ORDERED: RX INFO: IV CONTRAST WAS GIVEN 1 EACH MISC MISCELLANE PRN (12:39)
[2023-01-11] MEDS ORDERED: ZOLPIDEM 5 MG TAB PO PRN (12:39)
[2023-01-11] MEDS ORDERED: SODIUM CHLORIDE 0.9% 1,000 ML in EMPTY BAG 1 BAG IV SCH (12:45)
--- NOTE | 2023-01-11 12:47 | P.PCN ---
Date of Procedure: 01/11/23 Operative Findings: PERCUTANEOUS CORONARY INTERVENTION Performing physician Phill Amos M.D. Procedure Performed: 1. Successful stenting of a large OM-1 of the LCX using 3.0 x 18 mm and 3.25 x 12 mm Xience drug-eluting stents along with balloon angioplasty of the mid LCX with an excellent angiographic results and reduction of stenosis from 99% to 0% 2. Adjunctive use of intravascular imaging with IVUS Indication: Acute non-ST elevation myocardial infarction Approach: Right radial artery Complications: None Level of Sedation: Moderate with a sedation length of 50 minutes Procedure Discussion: After diagnostic heart catheterization was performed and after reviewing the angiogram the decision was made toward percutaneous coronary intervention of the left circumflex is large OM. Anticoagulation was initiated using heparin with continuous ACT monitoring. Subsequently the left main was engaged using JL 3.5 guiding catheter. The OM1 was wired using a whisper wire and subsequently another wire was placed in the AV groove left circumflex. Predilatation of the AV groove left circumflex was performed using 2.5 mm balloon and subsequently predilatation of the OM1 was performed using the same 2.5 mm balloon. After th at I did intravascular ultrasound of the OM1 where I was able to get a diameter about 3 mm of OM1. I decided to go ahead and deployed a 30 by 18 mm stent where the stent was positioned under fluoroscopy guidance and deployed under fluoroscopy guidance under 14 rigoberto. I did subsequently intravascular ultrasound which showed that the midportion of the stent was opposed but was not well expanded. I decided to post-dilate. I was able to advance 3.5 mm noncompliant balloon were the balloon was advanced under fluoroscopy guidance to the stented segment and I did PTCA ballooning of the stent in the OM1. The following angiogram showed an edge dissection on the distal edge of the stent. I decided to cover that with the stent so I deployed 3.25 x 12 mm stent with the second stent was positioned under fluoroscopy guidance and deployed under its nominal pressure. Postdilatation after that was performed after I performed again intravascular ultrasound. I did postdilated patient finally using 3.75 mm balloon. That was a noncompliant balloon. Final angiogram showed excellent angiographic results and the procedure was completed was no complication. There was CELSO-3 flow in both OM1 and the AV groove left circumflex coronary artery Postprocedure Management: 1. Dual antiplatelet therapy using aspirin and Effient for at least 12 months 2. Aggressive cholesterol control 3. Risk factors modification
--- NOTE | 2023-01-11 13:12 | P.CRDCN ---
History of Present Illness Consult date: 01/11/23 Reason for Consult (text): ACS History of present illness: History of present illness: This is a 62-year-old male with no previous cardiac history. He states he had a stress test done many years ago. He has a past medical history of chronic back pain chronic shoulder pain. Patient presented to hospital due to left-sided chest pain. He also had shortness of breath, sweats, he also had 1 episode of vomiting. He has had these episodes 4-5 times over the past 2 weeks but last night it became too much and more severe. Patient is a smoker of currently 2.5 packs per day and he started when he was a teenager. At the time of this evaluation, patient's chest pain has resolved. He does not know what improved his pain. Patient is seen today in the emergency center waiting for about on the cardiac stepdown unit. EKG sinus rhythm Chest x-ray: No acute process Troponin 0.096, 0.143, 0.446. CBC normal. CMP unremarkable other than a blood sugar of 296. Liver function tests were normal. Home cardiac medications: None Review Of Systems: At the time of my evaluation: Constitutional: No fever, no chills. No weakness, fatigue or lethargy. EENT: No headache. No dizziness. Lungs: No shortness of breath, cough, no sputum production. No wheezing. Cardiovascular: No chest pain, no lower extremity edema. No palpitations. No paroxysmal nocturnal dyspnea. No orthopnea. No lightheadedness or dizziness. No syncopal episodes. Abdominal: No abdominal pain. No nausea, vomiting. No diarrhea. No constipation. No bloody or tarry stools. Genitourinary: No dysuria.. No urinary retention. Musculoskeletal: No myalgias. No muscle weakness, no frequent falls. No back pain. No neck pain. Integumentary: No wounds. No rash. No unusual bruising. Neurologic: No aphasia. No facial droop. No change in mentation. No head injury. No headache. Physical examination: Gen: This is a 62-year-old male. He is resting and appears to be comfortable and in no acute distress. VS: reviewed HEENT: Head is atraumatic, normocephalic. Pupils equal, round. Sclerae is anicteric. NECK: Supple. No JVD. . LUNGS: Clear to auscultation. No wheezes or rhonchi. No intercostal retractions. HEART: Regular rate and rhythm. No murmur. ABDOMEN: Soft No tenderness. EXTREMITIES: No pedal edema. No calf tenderness. NEUROLOGICAL: Patient is awake, alert and oriented x3. Assessment: Non-ST elevated myocardial infarction Tobacco use and dependence Hyperglycemia Tobacco use and dependence Plan: Continue patient on heparin drip Start patient on aspirin, statin, and continue patient on Lopressor 25 mg twice daily Scheduled patient for cardiac catheterization today with Dr. aLmb Obtain 2-D echocardiogram and Doppler study to assess cardiac structure and function Smoking cessation Further recommendations to follow based upon clinical course Thank you kindly for this consultation. Nurse practitioner note has been reviewed, I agree with documented findings and plan of care. Patient was seen and examined. Past Medical History Additional Past Medical History / Comment(s): back pain, arthritis in back, Degenerative disc disease History of Any Multi-Drug Resistant Organisms: None Reported Past Surgical History: No Surgical Hx Reported Additional Past Surgical History / Comment(s): pelvis kidney, brain surgery Past Anesthesia/Blood Transfusion Reactions: No Reported Reaction Past Psychological History: Depression Smoking Status: Current every day smoker Past Alcohol Use History: None Reported Past Drug Use History: None Reported - Past Family History Father Additional Family Medical History / Comment(s): heart attack, triple bypass, lung cancer Medications and Allergies Home Medications Medication Instructions Recorded Confirmed Type oxyCODONE-APAP 10-325MG [Percocet 1 tab PO BID PRN 08/03/14 01/11/23 History 10-325] Oxymorphone HCl [Oxymorphone HCl 10 mg PO Q12H 01/11/23 01/11/23 History ER] Zolpidem [Ambien] 10 mg PO HS 01/11/23 01/11/23 History Allergies Allergy/AdvReac Type Severity Reaction Status Date / Time Iodinated Contrast Media Allergy Unknown Verified 01/11/23 11:22 Physical Exam Vitals: Vital Signs Temp Pulse Resp BP Pulse Ox 01/11/23 08:00 57 L 15 137/76 95 01/11/23 07:00 55 L 14 136/89 95 01/11/23 06:00 54 L 17 141/83 01/11/23 05:00 59 L 18 127/98 01/11/23 04:00 59 L 17 143/80 01/11/23 03:35 58 L 18 148/78 01/11/23 03:00 60 17 166/107 01/11/23 02:00 64 16 165/105 01/11/23 01:42 68 18 160/88 98 01/10/23 23:33 98 F 74 18 196/99 98 Intake and Output 01/10/23 01/11/23 01/11/23 22:59 06:59 14:59 Intake Total 59.757 Balance 59.757 Intake: Intake, IV Titration 59.757 Amount Heparin Sod,Pork in 0.45% 59.757 NaCl 25,000 unit In 0.45 % NaCl 1 250ml.bag @ 12 UNITS/KG/HR 10.832 mls/hr IV .Q23H5M [facility] Rx#: [id number] Other: Weight 90.265 kg Results 01/10/23 23:38 01/10/23 23:38 Cardiac Enzymes 01/10/23 01/10/23 01/11/23 Range/Units 23:38 23:38 01:48 AST 24 (17-59) U/L Troponin I 0.096 H* 0.143 H* (0.000-0.034) ng/mL 01/11/23 Range/Units 05:27 AST (17-59) U/L Troponin I 0.446 H* (0.000-0.034) ng/mL Coagulation 01/10/23 01/11/23 Range/Units 23:38 05:27 PT 10.5 (9.0-12.0) sec APTT 24.0 39.4 H (22.0-30.0) sec CBC 01/10/23 Range/Units 23:38 WBC 10.2 (3.8-10.6) k/uL RBC 5.16 (4.30-5.90) m/uL Hgb 15.7 (13.0-17.5) gm/dL Hct 47.0 (39.0-53.0) % Plt Count 228 (150-450) k/uL Comprehensive Metabolic Panel 01/10/23 Range/Units 23:38 Sodium 136 L (137-145) mmol/L Potassium 4.0 (3.5-5.1) mmol/L Chloride 106 (98-107) mmol/L Carbon Dioxide 19 L (22-30) mmol/L BUN 15 (9-20) mg/dL Creatinine 0.88 (0.66-1.25) mg/dL Glucose 296 H (74-99) mg/dL Calcium 9.0 (8.4-10.2) mg/dL AST 24 (17-59) U/L ALT 27 (4-49) U/L Alkaline Phosphatase 105 (38-126) U/L Total Protein 7.1 (6.3-8.2) g/dL Albumin 4.1 (3.5-5.0) g/dL Current Medications Generic Name Dose Route Start Last Admin Trade Name Freq PRN Reason Stop Dose Admin Alprazolam 1 mg 01/11/23 21:00 Alprazolam 1 Mg Tab PO HS [facility] Aspirin 325 mg 01/12/23 09:00 Aspirin 325 Mg Tab PO DAILY [facility] Atorvastatin Calcium 80 mg 01/11/23 09:00 01/11/23 08:42 Atorvastatin 80 Mg Tab PO 80 mg DAILY [place] Administration Heparin Sodium (Porcine) 0 unit 01/11/23 01:04 01/11/23 07:02 Heparin Sodium 1,000 Un/Ml (10ml Vl) IV 2,256.6 unit PER PROTOCOL PRN Administration Low PTT Protocol Heparin Sodium/Sodium Chloride 250 mls @ 10.832 mls/hr 01/11/23 01:15 01/11/23 07:06 25,000 unit/ Sodium Chloride IV 14 units/kg/hr .Q23H5M [facility] 12.637 mls/hr Titration Protocol 12 UNITS/KG/HR Sodium Chloride 1,000 mls @ 100 mls/hr 01/11/23 01:30 01/11/23 01:46 Saline 0.9% IV 100 mls/hr .Q10H [facility] Administration Metoprolol Tartrate 25 mg 01/11/23 01:30 01/11/23 08:42 Metoprolol Tartrate 25 Mg Tab PO 25 mg BID [place] Administration Nitroglycerin 0.4 mg 01/11/23 01:17 Nitroglycerin Sl Tabs 0.4 Mg Tab SUBLINGUAL Q5M PRN Chest Pain Non-Formulary Medication 30 mg 01/11/23 09:00 01/11/23 08:43 Oxymorphone Hcl [Opana Er] PO Not Given Q12HR [facility] Oxycodone/Acetaminophen 1 each 01/11/23 01:24 01/11/23 08:43 Oxycodone-Apap 10-325mg 1 Each Tab PO 1 each Q6HR PRN Administration Pain Prednisone 50 mg 01/11/23 09:00 01/11/23 08:43 Prednisone 50 Mg Tab PO 50 mg DAILY [place] Administration Intake and Output 01/10/23 01/11/23 01/11/23 22:59 06:59 14:59 Intake Total 59.757 Balance 59.757 Intake: Intake, IV Titration 59.757 Amount Heparin Sod,Pork in 0.45% 59.757 NaCl 25,000 unit In 0.45 % NaCl 1 250ml.bag @ 12 UNITS/KG/HR 10.832 mls/hr IV .Q23H5M [facility] Rx#: [id number] Other: Weight 90.265 kg 01/10/23 23:38 01/10/23 23:38
[2023-01-11 15:28] VITALS: RESP 16
[2023-01-11] MEDS ORDERED: ALPRAZolam 1 MG TAB PO SCH (21:00)
[2023-01-12] MEDS: HEPARIN SOD,PORK IN 0.45% NACL 25,000 UNIT in 0.45% NACL 1 250ML.BAG IV SCH (00:47)
[2023-01-12] MEDS: NICOTINE 21MG/24HR PATCH TRANSDERM SCH ×2 (01:06→09:27)
[2023-01-12] MEDS ORDERED: HEPARIN SODIUM,PORCINE 2,500 UNIT in SODIUM CHLORIDE 0.9% 250 ML IRRIGATION PRN (07:00)
[2023-01-12] MEDS ORDERED: HEPARIN SODIUM,PORCINE 10,000 UNIT in SODIUM CHLORIDE 0.9% 1,000 ML IRRIGATION PRN (07:00)
[2023-01-12] MEDS ORDERED: PRASUGREL 10 MG TAB PO SCH (09:00)
[2023-01-12] MEDS ORDERED: ASPIRIN 325 MG TAB PO SCH (09:00)
[2023-01-12] MEDS: SODIUM CHLORIDE 0.9% 1,000 ML IV SCH (09:20)
[2023-01-12] MEDS: OXYMORPHONE HCL 30 MG PO SCH (09:20)
[2023-01-12] MEDS: FAMOTIDINE 20 MG/2 ML VIAL IV SCH (09:27)
[2023-01-12] MEDS: oxyCODONE-APAP 10-325MG 1 EACH TAB PO PRN (09:27)
[2023-01-12] MEDS: predniSONE 50 MG TAB PO SCH (09:28)
[2023-01-12] MEDS: ATORVASTATIN 80 MG TAB PO SCH (09:28)
[2023-01-12] MEDS: METOPROLOL TARTRATE 25 MG TAB PO SCH (09:28)
[2023-01-12 10:30] LABS: African American GFR (CKD) >90 (>60 ml/min/1.73 sqM); Non-African American GFR(CKD) >90 (>60 ml/min/1.73 sqM)
--- NOTE | 2023-01-12 12:01 | CA ---
Transthoracic Echo Report Name: Angel Mejia Age: 62 Gender: M : 1960 Exam Date: 01/11/2023 15:05 Exam Location: [place] [facility] Ht (in): 68 Wt (lb): 199 Ordering Physician: Rosy Durham Attending/Referring Phys: [id number], Marva [employer] Bertha Lema [facility] Procedure CPT: Indications: LVF Cardiac Hx: Technical Quality: Technically difficult study Contrast 1: Total Dose (mL): Contrast 2: Total Dose (mL): MEASUREMENTS (Male / Female) Normal Values 2D ECHO LV Diastolic Diameter PLAX 4.5 cm 4.2 - 5.9 / 3.9 - 5.3 cm LV Systolic Diameter PLAX 3.4 cm IVS Diastolic Thickness 0.8 cm 0.6 - 1.0 / 0.6 - 0.9 cm LVPW Diastolic Thickness 1.0 cm 0.6 - 1.0 / 0.6 - 0.9 cm LV Relative Wall Thickness 0.4 M-MODE Aortic Root Diameter MM 3.0 cm LA Systolic Diameter MM 3.4 cm LA Ao Ratio MM 1.1 AV Cusp Separation MM 1.7 cm DOPPLER AV Peak Velocity 147.2 cm/s AV Peak Gradient 8.7 mmHg AV Mean Velocity 102.9 cm/s AV Mean Gradient 4.7 mmHg AV Velocity Time Integral 28.1 cm LVOT Peak Velocity 113.5 cm/s LVOT Peak Gradient 5.2 mmHg LVOT Velocity Time Integral 20.9 cm Mitral E Point Velocity 70.3 cm/s Mitral A Point Velocity 84.0 cm/s Mitral E to A Ratio 0.8 MV Deceleration Time 238.5 ms LV E' Lateral Velocity 8.6 cm/s Mitral E to LV E' Lateral Ratio 8.2 LV E' Septal Velocity 9.5 cm/s Mitral E to LV E' Septal Ratio 7.4 Right Atrial Pressure 3.0 mmHg FINDINGS Left Ventricle Normal Left ventricular size, wall thickness, systolic function with no obvious regional wall motion abnormalities. Left ventricular ejection fraction is estimated at 50-55%. Right Ventricle Mild right ventricular dilatation. Right Atrium Normal right atrial size. Left Atrium Normal left atrial size. Mitral Valve Structurally normal mitral valve. Trace mitral regurgitation. Aortic Valve Aortic valve not well visualized. No aortic valve stenosis or regurgitation. Tricuspid Valve Structurally normal tricuspid valve. No tricuspid regurgitation. Pulmonic Valve Pulmonic valve not well visualized. Pericardium No pericardial effusion. Prominent epicardial fat. Aorta Normal size aortic root. CONCLUSIONS Normal LV size and systolic function Previewed by: Dr. Grzegorz Powell MD (Electronically Signed) Final Date: 12 January 2023 12:00
[2023-01-12 12:26] VITALS: BP 120/74; PULSE 60; TEMP 97.5
--- NOTE | 2023-01-12 13:43 | P.PN ---
Subjective Progress Note Date: 01/12/23 History of present illness: This is a 62-year-old male with no previous cardiac history. He sta umu he had a stress test done many years ago. He has a past medical history of chronic back pain chronic shoulder pain. Patient presented to hospital due to left-sided chest pain. He also had shortness of breath, sweats, he also had 1 episode of vomiting. He has had these episodes 4-5 times over the past 2 weeks but last night it became too much and more severe. Patient is a smoker of currently 2.5 packs per day and he started when he was a teenager. At the time of this evaluation, patient's chest pain has resolved. He does not know what improved his pain. Patient is seen today in the emergency center waiting for about on the cardiac stepdown unit. EKG sinus rhythm Chest x-ray: No acute process Troponin 0.096, 0.143, 0.446. CBC normal. CMP unremarkable other than a blood sugar of 296. Liver function tests were normal. Home cardiac medications: None 01/12 Yesterday, patient underwent cardiac catheterization with Dr. Darien Lamb which revealed 90% stenosis involving the OM branch with an area of stenosis involving the circumflex also at the bifurcation. Subsequently, patient had a stent placed in the OM branch by Dr. Amos. This morning, patient denies having any chest pain, no shortness of breath, no lightheadedness or dizziness. He has been ambulating without difficulty. Blood pressure 120/74, heart rate in the 60s. Echocardiogram reveals normal LV size and systolic function. Physical examination: Gen: This is a 62-year-old male. He is resting and appears to be comfortable and in no acute distress. VS: reviewed HEENT: Head is atraumatic, normocephalic. Pupils equal, round. Sclerae is anicteric. NECK: Supple. No JVD. . LUNGS: Clear to auscultation. No wheezes or rhonchi. No intercostal retractions. HEART: Regular rate and rhythm. No murmur. ABDOMEN: Soft No tenderness. EXTREMITIES: No pedal edema. No calf tenderness. NEUROLOGICAL: Patient is awake, alert and oriented x3. Assessment: Non-ST elevated myocardial infarction status post stent of the OM Tobacco use and dependence Hyperglycemia Tobacco use and dependence Plan: Continue patient on current cardiac medications, prescriptions have been sent to his pharmacy Patient will follow up in one week with Dr. Lamb Patient is cleared for discharge from cardiology. Nurse practitioner note has been reviewed, I agree with documented findings and plan of care. Patient was seen and examined. Objective - Vital Signs Vital signs: Vital Signs Temp 98.3 F 01/12/23 04:00 Pulse 65 01/12/23 04:00 Resp 16 01/12/23 04:00 BP 135/75 01/12/23 04:00 Pulse Ox 97 01/12/23 04:00 FiO2 Intake & Output 01/11/23 01/12/23 01/12/23 18:59 06:59 18:59 Intake Total 609.350 400 540 Balance 609.350 400 540 Weight 90.265 kg Intake: IV 400 Intake, IV Titration 91.350 400 Amount Heparin Sod,Pork in 0.45% 91.350 NaCl 25,000 unit In 0.45 % NaCl 1 250ml.bag @ 12 UNITS/KG/HR 10.832 mls/hr IV .Q23H5M [facility] Rx#: [id number] Sodium Chloride 0.9% 1, 400 000 ml @ 100 mls/hr IV . Q10H [facility] Rx#:[id number] Oral 118 540 Other: # Voids 1 1 - Labs CBC & Chem 7: 01/10/23 23:38 01/12/23 09:44 Labs: Abnormal Lab Results - Last 24 Hours (Table) 01/11/23 Range/Units 14:37 APTT 51.1 H (22.0-30.0) sec
[2023-01-12 13:46] VITALS: BMI 30.2
[2023-01-12 16:07] LABS: Chol/HDL Ratio 6.45 Ratio; LDL Cholesterol,Calculated 97.7 mg/dL (0.0-131.0)
--- NOTE | 2023-01-17 06:35 | P.DS ---
Providers Date of admission: 01/11/23 01:17 Expected date of discharge: 01/12/23 Attending physician: Leonardo Freedman Consults: 01/11/23 01:17 Consult Physician Urgent Consulting Provider: Phill Amos Consult Reason/Comments: Acute coronary syndrome Do you want consulting provider notified?: Yes 01/11/23 12:39 Consult Physician Routine Consulting Provider: [facility] Consult Reason/Comments: Post Interventional patient Do you want consulting provider notified?: Already Contacted Primary care physician: Luis Enrique Leija Hospital Course: Final diagnosis Chest pain, suspicious for non-STEMI, status post stenting Nicotine dependence History of osteoarthritis within back pain and degenerative disc disease Depression, not active issue obesity with a BMI of 30.3 GI prophylaxis DVT prophylaxis Full code Discharge disposition Patient is being discharged in a stable condition with guarded prognosis to home. Patient will follow-up with Dr. Leija in the outpatient setting upon discharge. Patient is to continue with medications as prescribed low along with close outpatient follow-up with cardiology as scheduled. Total time taken is greater than 35 minutes. Hospital course This is a 62-year-old male who was recently admitted with chest pain, elevated troponins underwent cardiac catheterization with stenting. Patient will continue on aspirin and effient and close outpatient follow-up with cardiology. Strongly encouraged smoking cessation is patient reports he smokes approximately 3 packs per day. Patient was given nicotine patches on discharge and instructed to follow-up with primary care provider this week. Diet and risk factor modifications discussed. Please refer to cardiology no for further HPI. Patient reports to feeling well and would like to go home. Currently no reports of chest pain, shortness of breath, or palpitations. Patient is afebrile. No reports of nausea or vomiting and patient is tolerating diet. Patient will be d ischarged home today. Guarded prognosis. Physical exam: Gen: This is a 62-year-old male who is awake, alert and oriented 3, well- developed, well-nourished, obese HEENT: Head is atraumatic, normocephalic. Pupils equal, round. Sclerae is anicteric. NECK: Supple. No JVD. No lymphadenopathy. No thyromegaly. LUNGS: Clear to auscultation. No wheezes or rhonchi. No intercostal retractions. HEART: S1, S2 are muffled ABDOMEN: Soft. Obese. Bowel sounds are present. No masses. No tenderness. EXTREMITIES: No pedal edema. No calf tenderness. NEUROLOGICAL: Patient is awake, alert and oriented x3. Cranial nerves 2 through 12 are grossly intact. Please refer to medication reconciliation sheet for a list of medications. The impression and plan of care has been dictated by Rhonda Mei, Nurse Practitioner as directed. Dr. Tano MD I have performed a history and examination and MDM of this patient, discussed the same with the dictator, and agree with the dictator's assessment and plan as written ,documented as a scribe. Based on total visit time, I have performed more than 50% of the visit. Patient Condition at Discharge: Fair Plan - Discharge Summary Discharge Rx Participant: No New Discharge Prescriptions: New Nicotine 21Mg/24Hr Patch [Habitrol] 1 patch TRANSDERM DAILY #30 patch Aspirin EC [Ecotrin Low Dose] 81 mg PO DAILY #90 tab Prasugrel [Effient] 10 mg PO DAILY #90 tab Atorvastatin [Lipitor] 80 mg PO DAILY #90 tab Metoprolol Tartrate [Lopressor] 25 mg PO BID #180 tab Continue oxyCODONE-APAP 10-325MG [Percocet 10-325 mg] 1 tab PO BID PRN PRN Reason: Pain Zolpidem [Ambien] 10 mg PO HS Oxymorphone HCl [Oxymorphone HCl ER] 10 mg PO Q12H Discharge Medication List oxyCODONE-APAP 10-325MG [Percocet 10-325 mg] 1 tab PO BID PRN 08/03/14 [History] Oxymorphone HCl [Oxymorphone HCl ER] 10 mg PO Q12H 01/11/23 [History] Zolpidem [Ambien] 10 mg PO HS 01/11/23 [History] Aspirin EC [Ecotrin Low Dose] 81 mg PO DAILY #90 tab 01/12/23 [Rx] Atorvastatin [Lipitor] 80 mg PO DAILY #90 tab 01/12/23 [Rx] Metoprolol Tartrate [Lopressor] 25 mg PO BID #180 tab 01/12/23 [Rx] Nicotine 21Mg/24Hr Patch [Habitrol] 1 patch TRANSDERM DAILY #30 patch 01/12/23 [Rx] Prasugrel [Effient] 10 mg PO DAILY #90 tab 01/12/23 [Rx] Follow up Appointment(s)/Referral(s): Luis Enrique Leija MD [Primary Care Provider] - 1-2 days Jeremi Lamb MD [STAFF PHYSICIAN] - 1 Week Patient Instructions/Handouts: Heart Attack (DC), Coronary Artery Disease (DC) Activity/Diet/Wound Care/Special Instructions: Activity Limited until follow-up Follow-up with primary care provider on discharge [place] follow-up with cardiology in 1-2 weeks Continue with medications as prescribed Continue heart healthy diet Avoid all tobacco use and exposure Discharge Disposition: HOME SELF-CARE
== END 2023-01-12 14:55 | disposition home or self-care (01) | DRG 247 ==
LOC: EC 23:17 → 3SCARD 01-11 01:17
PROVIDERS: ADMIT Hospitalist; ATTEND Hospitalist
PROC: B2111ZZ Fluoroscopy of Multiple Coronary Arteries using Low Osmolar Contrast (ICD-10-PCS; 2023-01-11)
PROC: 027035Z Dilation of Coronary Artery, One Artery with Two Drug-eluting Intraluminal Devices, Percutaneous Approach (ICD-10-PCS; principal; 2023-01-11 11:03)
PROC: B240ZZ3 Ultrasonography of Single Coronary Artery, Intravascular (ICD-10-PCS; 2023-01-11 11:03)
PROC: 4A023N7 Measurement of Cardiac Sampling and Pressure, Left Heart, Percutaneous Approach (ICD-10-PCS; 2023-01-11 11:03)
DX: I21.4 Non-ST elevation (NSTEMI) myocardial infarction (principal); E66.9 Obesity, unspecified; F32.A Depression, unspecified; I25.119 Atherosclerotic heart disease of native coronary artery with unspecified angina pectoris; F17.210 Nicotine dependence, cigarettes, uncomplicated; M47.9 Spondylosis, unspecified; G89.29 Other chronic pain; M25.519 Pain in unspecified shoulder; R73.9 Hyperglycemia, unspecified; Z68.30 Body mass index [BMI] 30.0-30.9, adult; Z71.6 Tobacco abuse counseling; Z79.891 Long term (current) use of opiate analgesic; Z91.041 Radiographic dye allergy status; Z79.899 Other long term (current) drug therapy; Z82.49 Family history of ischemic heart disease and other diseases of the circulatory system; Z79.02 Long term (current) use of antithrombotics/antiplatelets; Z79.82 Long term (current) use of aspirin
CPT/HCPCS: 36415; 71046; 80053; 80061; 82565; 84484; 85025; 85610; 85730; 92978; 93005; 93306; 93458; 96365; 96366; 96375; 99291

== ENCOUNTER 2023-10-07 23:11 | Emergency (ER) | payer MEDICARE ==
[2023-10-08 00:44] LABS: Basophils # (A) 0.1 k/uL (0-0.2); Basophils % (A) 1 %; Eosinophils # (A) 0.1 k/uL (0-0.7); Eosinophils % (A) 1 %; HGB 14.7 gm/dL (13.0-17.5); Lymphocytes # (A) 3.6 k/uL (1.0-4.8); Lymphocytes % (A) 35 %; MCH 30.4 pg (25.0-35.0); MCHC 32.6 g/dL (31.0-37.0); MCV 93.1 fL (80.0-100.0); Mean Platelet Volume 8.8; Monocytes # (A) 0.6 k/uL (0-1.0); Monocytes % (A) 6 %; Neutrophils # (A) 5.6 k/uL (1.3-7.7); Neutrophils % (A) 54 %; Platelet Count 217 k/uL (150-450); RBC 4.84 m/uL (4.30-5.90); RDW 13.1 % (11.5-15.5); WBC 10.2 k/uL (3.8-10.6)
[2023-10-08 00:52] LABS: ALT 33 U/L (4-49); African American GFR (CKD) 75 (>60 ml/min/1.73 sqM); Albumin 4.3 g/dL (3.5-5.0); Anion Gap 9 mmol/L; Blood Urea Nitrogen 28 mg/dL (9-20); Calcium 9.1 mg/dL (8.4-10.2); Carbon Dioxide 21 mmol/L (22-30); Chloride 106 mmol/L (98-107); Glucose 251 mg/dL (74-99); Non-African American GFR(CKD) 65 (>60 ml/min/1.73 sqM); Sodium 136 mmol/L (137-145); Total Bilirubin 0.7 mg/dL (0.2-1.3); Total Protein 7.3 g/dL (6.3-8.2)
[2023-10-08 00:55] LABS: AST 29 U/L (17-59); Alkaline Phosphatase 96 U/L (38-126); Magnesium 1.6 mg/dL (1.6-2.3); Potassium 4.6 mmol/L (3.5-5.1)
[2023-10-08 00:57] LABS: INR 1.1 (<1.2); Partial Thromboplastin Time 24.6 sec (22.0-30.0); Prothrombin Time 11.5 sec (10.0-12.5)
[2023-10-08 00:59] LABS: NT-Pro-B-Type Natriuretic Pept 74 pg/mL
[2023-10-08 01:28] VITALS: RESP 18; TEMP 97.7
--- NOTE | 2023-10-08 01:38 | XR ---
EXAM: XR Chest, 2 Views CLINICAL HISTORY: ITS.REASON XR Reason: Chest Pain TECHNIQUE: Frontal and lateral views of the chest. COMPARISON: No relevant prior studies available. FINDINGS: Lungs: No consolidation or mass. Pleural space: No effusion. Heart: No cardiomegaly. Bones/joints: No acute findings. IMPRESSION: No acute cardiopulmonary process.
--- NOTE | 2023-10-08 02:53 | ED ---
Chest Pain HPI - General Chief Complaint: Chest Pain Stated Complaint: chest pain Time Seen by Provider: 10/07/23 23:15 Source: patient Mode of arrival: ambulatory - History of Present Illness Initial Comments: 63-year-old male who presents to the emergency department reporting chest pain. Patient states that he has a longstanding history of chest pain. 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 Patient states that he had a stress test today. He has yet to receive the results. Patient states that he had an episode of his chest pain today after he went home. He does have nitro at home however he did not try to take it. States that it is usually a sharp shooting pain that only last for a few seconds. The pain lasted longer today and this is what prompted him to come to the emergency department. He denies any shortness of breath. No nausea or vomiting. No diaphoresis. No other alleviating, precipitating or modifying factors - Related Data Home Medications Medication Instructions Recorded Confirmed oxyCODONE-APAP 10-325MG [Percocet 1 tab PO BID PRN 08/03/14 01/11/23 10-325 mg] Oxymorphone HCl [Oxymorphone HCl 10 mg PO Q12H 01/11/23 01/11/23 ER] Zolpidem [Ambien] 10 mg PO HS 01/11/23 01/11/23 Previous Rx's Medication Instructions Recorded Aspirin EC [Ecotrin Low Dose] 81 mg PO DAILY #90 tab 01/12/23 Atorvastatin [Lipitor] 80 mg PO DAILY #90 tab 01/12/23 Metoprolol Tartrate [Lopressor] 25 mg PO BID #180 tab 01/12/23 Nicotine 21Mg/24Hr Patch [Habitrol] 1 patch TRANSDERM DAILY #30 patch 01/12/23 Prasugrel [Effient] 10 mg PO DAILY #90 tab 01/12/23 Allergies Allergy/AdvReac Type Severity Reaction Status Date / Time Iodinated Contrast Media Allergy Unknown Verified 10/07/23 23:19 Review of Systems ROS Statement: Those systems with pertinent positive or pertinent negative responses have been documented in the HPI. ROS Other: All systems not noted in ROS Statement are negative. Past Medical History Additional Past Medical History / Comment(s): back pain, arthritis in back, Degenerative disc disease History of Any Multi-Drug Resistant Organisms: None Reported Past Surgical History: No Surgical Hx Reported, Heart Catheterization With Stent Additional Past Surgical History / Comment(s): pelvis kidney, brain surgery, s tress test 10/01 Past Anesthesia/Blood Transfusion Reactions: No Reported Reaction Past Psychological History: Depression Smoking Status: Current every day smoker Past Alcohol Use History: None Reported Past Drug Use History: None Reported - Past Family History Father History Unknown: Yes Additional Family Medical History / Comment(s): heart attack, triple bypass, lung cancer General Exam General appearance: alert, in no apparent distress Head exam: Present: atraumatic, normocephalic, normal inspection Eye exam: Present: normal appearance, PERRL, EOMI. Absent: scleral icterus, conjunctival injection, periorbital swelling ENT exam: Present: normal exam, mucous membranes moist Neck exam: Present: normal inspection. Absent: tenderness, meningismus, lymphadenopathy Respiratory exam: Present: normal lung sounds bilaterally. Absent: respiratory distress, wheezes, rales, rhonchi, stridor Cardiovascular Exam: Present: regular rate, normal rhythm, normal heart sounds. Absent: systolic murmur, diastolic murmur, rubs, gallop, clicks GI/Abdominal exam: Present: soft, normal bowel sounds. Absent: distended, tenderness, guarding, rebound, rigid Extremities exam: Present: normal inspection, full ROM, normal capillary refill. Absent: tenderness, pedal edema, joint swelling, calf tenderness Back exam: Present: normal inspection Neurological exam: Present: alert, oriented X3, CN II-XII intact Psychiatric exam: Present: normal affect, normal mood Skin exam: Present: warm, dry, intact, normal color. Absent: rash Course Vital Signs 10/07/23 10/08/23 23:15 02:55 Temperature 97.7 F Pulse Rate 75 62 Respiratory 18 18 Rate Blood Pressure 175/73 156/83 O2 Sat by Pulse 98 96 Oximetry Chest Pain MDM - MDM Was pt. sent in by a medical professional or institution (, PA, INTERNAL MEDICINE HOSPITALIST, urgent care, hospital, or [facility]...) When possible be specific @ -No Did you speak to anyone other than the patient for history (EMS, parent, family, police, friend...)? What history was obtained from this source @ -Spoke with the patient's for history Did you review nursing and triage notes (agree or disagree)? Why? @ -I reviewed and agree with nursing and triage notes Were old charts reviewed (outside hosp., previous admission, EMS record, old EKG, old radiological studies, urgent care reports/EKG's, [facility] records)? Report findings @ -No old charts were reviewed Differential Diagnosis (chest pain, altered mental status, abdominal pain women, abdominal pain men, vaginal bleeding, weakness, fever, dyspnea, syncope, headache, dizziness, GI bleed, back pain, seizure, CVA, palpatations, mental health, musculoskeletal)? @ -Differential Chest Pain: Stable Angina, Unstable Angina, STEMI, NSTEMI Aortic Dissection, Pneumothorax, Musculoskeletal, Esophageal Spasm GERD, Cholecystitis, Pancreatitis, Zoster, this is not meant to be an all-inclusive list. EKG interpreted by me (3pts min.). @ -Yes and demonstrates sinus rhythm with a rate of 64. ME interval 159. QRS 120. QTc of 410. No acute ST segment elevations or depressions X-rays interpreted by me (1pt min.). @ -Yes and demonstrates no acute process CT interpreted by me (1pt min.). @ -None done U/S interpreted by me (1pt. min.). @ -None done What testing was considered but not performed or refused? (CT, X-rays, U/S, labs)? Why? @ -None What meds were considered but not given or refused? Why? @ -None Did you discuss the management of the patient with other professionals (professionals i.e. , PA, INTERNAL MEDICINE HOSPITALIST, lab, RT, psych nurse, social services specialist, tangible personal property appraiser, teacher, zoology technical officer, community case manager)? Give summary @ -No Was smoking cessation discussed for >3mins.? @ -No Was critical care preformed (if so, how long)? @ -No Were there social determinants of health that impacted care today? How? (Homelessness, low income, unemployed, alcoholism, drug addiction, transportation, low edu. Level, literacy, decrease access to med. care, detention, rehab)? @ -No Was there de-escalation of care discussed even if they declined (Discuss DNR or withdrawal of care, Hospice)? DNR status @ -No What co-morbidities impacted this encounter? (DM, HTN, Smoking, COPD, CAD, Cancer, CVA, ARF, Chemo, Hep., AIDS, mental health diagnosis, sleep apnea, morbid obesity)? @ -Coronary artery disease with stent placement Was patient admitted / discharged? Hospital course, mention meds given and route, prescriptions, significant lab abnormalities, going to OR and other pertinent info. @ -Upon arrival patient was placed into room 10. A thorough history and physical exam was performed. Twelve-lead EKG was obtained. Laboratory studies are conducted. Chest x-ray was performed. Results are discussed with the patient. As the patient reports that his symptoms are chronic and patient recently had stress testing done today I do feel that he is stable for discharge home with outpatient follow-up. He is to call on Tuesday to obtain the results of his stress test. Return to the emergency department should his pain return. Patient understood this. He was discharged home in stable condition Undiagnosed new problem with uncertain prognosis? @ -No Drug Therapy requiring intensive monitoring for toxicity (Heparin, Nitro, Insulin, Cardizem)? @ -No Were any procedures done? @ -No Diagnosis/symptom? @ -Acute exacerbation of chronic chest pain Acute, or Chronic, or Acute on Chronic? @ -Acute on chronic Uncomplicated (without systemic symptoms) or Complicated (systemic symptoms)? @ -Complicated Side effects of treatment? @ -No Exacerbation, Progression, or Severe Exacerbation? @ -No Poses a threat to life or bodily function? How? (Chest pain, [place], [place], pneumonia, PE, COPD, DKA, ARF, appy, cholecystitis, CVA, Diverticulitis, Homicidal, Suicidal, threat to staff... and all critical care pts) @ -Possibly as the patient is suffering from chest pain Disposition Clinical Impression: Chest pain Disposition: HOME SELF-CARE Condition: Stable Instructions (If sedation given, give patient instructions): Chest Pain (ED) Additional Instructions: Please follow-up with Dr. Lamb in regards to your symptoms and results of your stress test. Return for any new or worsening symptoms Is patient prescribed a controlled substance at d/c from ED?: No Referrals: Luis Enrique Leija [Primary Care Provider] - 1-2 days Valentina Lamb MD [STAFF PHYSICIAN] - 1-2 days Time of Disposition: 02:53
[2023-10-08 03:21] VITALS: BP 156/83; PULSE 62
== END 2023-10-08 03:01 | disposition home or self-care (01) ==
LOC: EC 23:11
DX: R07.89 Other chest pain (principal); I25.10 Atherosclerotic heart disease of native coronary artery without angina pectoris; F17.200 Nicotine dependence, unspecified, uncomplicated; Z91.041 Radiographic dye allergy status; Z95.5 Presence of coronary angioplasty implant and graft
CPT/HCPCS: 36415; 71046; 80053; 83735; 83880; 84484; 85025; 85610; 85730; 93005; 99285